=== PATIENT | female | born 1960 | race Caucasian/White ===

== ENCOUNTER 2017-09-22 00:03 | Emergency (ER) | payer OTHER ==
[2017-09-22 01:40] LABS: ADD MAN DIFF? NO
[2017-09-22 01:46] LABS: BASOPHIL # 0.1 10^3/ul (0.0-0.1); BASOPHILS % 0.7 % (0.0-2.0); EOSINOPHILS # 0.2 10^3/ul (0.0-0.5); EOSINOPHILS % 2.6 % (0.0-7.0); HEMATOCRIT 35.9 % (37.0-47.0); HEMOGLOBIN 10.8 g/dl (12.0-16.0); LYMPHOCYTES % 43.1 % (15.0-51.0); MEAN CORPUSCULAR HEMOGLOBIN 26.3 pg (29.0-33.0); MEAN CORPUSCULAR HGB CONC 30.1 g/dl (32.0-37.0); MEAN CORPUSCULAR VOLUME 87.3 fl (82.0-101.0); MEAN PLATELET VOLUME 9.5 fl (7.4-10.4); MONOCYTE # 0.6 10^3/ul (0.3-0.9); MONOCYTES % 8.2 % (0.0-11.0); NEUTROPHIL # 3.1 10^3/ul (1.6-7.5); NEUTROPHILS % 45.3 % (39.0-77.0); PLATELET COUNT 358 10^3/UL (140-415); RED BLOOD COUNT 4.11 10^6/ul (4.20-5.40); RED CELL DISTRIBUTION WIDTH 15.9 % (11.5-14.5)
[2017-09-22 01:46] LABS: WHITE BLOOD COUNT 6.9 10^3/ul (4.8-10.8)
[2017-09-22 02:02] LABS: ANION GAP 15 (8-16); BLOOD UREA NITROGEN 16 mg/dl (7-20); CALCIUM 9.5 mg/dl (8.4-10.2); CARBON DIOXIDE 32 mmol/L (21-31); CHLORIDE 103 mmol/L (97-110); CHOL/HDL RATIO 3.4 RATIO; CHOLESTEROL 161 mg/dl (100-200); CREATININE 1.01 mg/dl (0.44-1.00); GLUCOSE 81 mg/dl (70-220); HDL CHOLESTEROL 47 mg/dl (37-92); LDL CHOLESTEROL,CALCULATED 92 mg/dl; POTASSIUM 3.7 mmol/L (3.5-5.1); SODIUM 146 mmol/L (135-144); TRIGLYCERIDES 110 mg/dl (0-149)
[2017-09-22 02:13] LABS: TROPONIN-I < 0.010 ng/ml (0.000-0.120)
[2017-09-22] MEDS: ASPIRIN 81 MG TAB PO (02:37)
[2017-09-22] MEDS: ACETAMINOPHEN 500 MG TAB PO (02:37)
[2017-09-22 03:29] LABS: INR 1.08; PROTIME 14.1 Sec (11.9-14.9); PT RATIO 1.1
[2017-09-22 03:30] LABS: PARTIAL THROMBOPLASTIN TIME 35.8 Sec (25.0-35.0)
[2017-09-22 03:51] LABS: HEMOGLOBIN A1C 5.6 % (0-5.9)
== END 2017-09-22 07:39 | disposition short-term general hospital (02) ==
LOC: E/R 07:39
DX: R53.1 Weakness (principal); R60.0 Localized edema; R40.2142 Coma scale, eyes open, spontaneous, at arrival to emergency department; R40.2252 Coma scale, best verbal response, oriented, at arrival to emergency department; R40.2362 Coma scale, best motor response, obeys commands, at arrival to emergency department; M79.604 Pain in right leg; Z87.898 Personal history of other specified conditions
CPT/HCPCS: 36415; 70450; 71045; 80048; 80061; 83036; 84484; 85025; 85610; 85730; 93005; 99285-25

== ENCOUNTER 2018-08-17 04:59 | Emergency (ER) | payer OTHER ==
[2018-08-17 05:54] LABS: ADD MAN DIFF? NO
[2018-08-17 05:56] LABS: BASOPHIL # 0.1 10^3/ul (0.0-0.1); BASOPHILS % 0.4 % (0.0-2.0); EOSINOPHILS # 0.1 10^3/ul (0.0-0.5); EOSINOPHILS % 0.5 % (0.0-7.0); HEMOGLOBIN 8.2 g/dl (12.0-16.0); LYMPHOCYTES # 2.5 10^3/ul (0.8-2.9); LYMPHOCYTES % 15.1 % (15.0-51.0); MEAN CORPUSCULAR HEMOGLOBIN 25.9 pg (29.0-33.0); MEAN CORPUSCULAR HGB CONC 30.4 g/dl (32.0-37.0); MEAN CORPUSCULAR VOLUME 85.2 fl (82.0-101.0); MEAN PLATELET VOLUME 8.9 fl (7.4-10.4); MONOCYTE # 0.9 10^3/ul (0.3-0.9); MONOCYTES % 5.2 % (0.0-11.0); NEUTROPHIL # 12.9 10^3/ul (1.6-7.5); NEUTROPHILS % 78.1 % (39.0-77.0); PLATELET COUNT 430 10^3/UL (140-415); RED BLOOD COUNT 3.17 10^6/ul (4.20-5.40)
[2018-08-17 05:56] LABS: WHITE BLOOD COUNT 16.5 10^3/ul (4.8-10.8)
[2018-08-17] MEDS: PIPER-TAZO 3.375 GM IV (PMX) 100 ML IVPB (06:04)
[2018-08-17] MEDS: ACETAMINOPHEN 325 MG TAB PO (06:04)
[2018-08-17] MEDS: SODIUM CHLORIDE 0.9% 1L BAG IV* (06:04)
[2018-08-17 06:14] LABS: ALBUMIN/GLOBULIN RATIO 0.62; ALKALINE PHOSPHATASE 176 IU/L (42-121); ANION GAP 8 (5-13); ASPARTATE AMINO TRANSFERASE 15 IU/L (15-46); BILIRUBIN,INDIRECT 0.3 mg/dl (0-1.1); BILIRUBIN,TOTAL 0.3 mg/dl (0.2-1.3); BLOOD UREA NITROGEN 12 mg/dl (7-20); CALCIUM 8.6 mg/dl (8.4-10.2); CARBON DIOXIDE 27 mmol/L (21-31); CHLORIDE 105 mmol/L (97-110); CREATININE 0.77 mg/dl (0.44-1.00); Estimated GFR > 60 mL/min (>60); GLUCOSE 105 mg/dl (70-220); POTASSIUM 3.2 mmol/L (3.5-5.1); SODIUM 140 mmol/L (135-144); TOTAL PROTEIN 7.8 g/dl (6.1-8.1)
[2018-08-17 06:17] LABS: ALANINE AMINOTRANSFERASE < 6 IU/L (13-69)
[2018-08-17 06:18] LABS: INR 1.04; PROTIME 13.7 Sec (11.9-14.9); PT RATIO 1.1
[2018-08-17 06:19] LABS: PARTIAL THROMBOPLASTIN TIME 35.7 Sec (23.0-35.0)
[2018-08-17 06:25] LABS: TROPONIN-I < 0.012 ng/ml (0.000-0.120)
[2018-08-17] MEDS: VANCOMYCIN 1 GM (PMX) 250 ML IVPB (06:30)
[2018-08-17] MEDS: ONDANSETRON 4 MG INJ IV (06:30)
[2018-08-17] MEDS: morphine 4 MG/ML VIAL IV (06:31)
[2018-08-17 08:30] LABS: LACTIC ACID 0.7 mmol/L (0.5-2.0)
== END 2018-08-17 08:45 | disposition left against medical advice (07) ==
LOC: E/R 04:59
DX: A41.9 Sepsis, unspecified organism (principal); F17.210 Nicotine dependence, cigarettes, uncomplicated; E03.9 Hypothyroidism, unspecified; L03.115 Cellulitis of right lower limb; L03.116 Cellulitis of left lower limb; Z85.71 Personal history of Hodgkin lymphoma
CPT/HCPCS: 36415; 71045; 80053; 83605; 84484; 85025; 85610; 85730; 87040-91; 93005; 96374; 96375; 99285-25

== ENCOUNTER 2018-08-25 05:36 | Inpatient (IN) | payer OTHER ==
[2018-08-25] MEDS ORDERED: ACETAMINOPHEN 325 MG TAB PO (07:00)
[2018-08-25] MEDS ORDERED: ONDANSETRON 4 MG INJ IV ×2 (07:00→09:30)
[2018-08-25] MEDS: PIPER-TAZO 3.375 GM IV (PMX) 100 ML IVPB (07:47)
[2018-08-25 08:08] LABS: ADD MAN DIFF? NO
[2018-08-25 08:14] LABS: ADD UMIC YES; UR ASCORBIC ACID NEGATIVE (NEGATIVE); UR BACTERIA FEW /HPF (NONE SEEN); UR BILIRUBIN (Dip) NEGATIVE (NEGATIVE); UR BLOOD (Dip) NEGATIVE (NEGATIVE); UR CLARITY SLIGHTLY CLOUDY (CLEAR); UR COLOR YELLOW (YELLOW); UR GLUCOSE (Dip) NEGATIVE (NEGATIVE); UR KETONES (Dip) NEGATIVE (NEGATIVE); UR LEUKOCYTE ESTERASE (Dip) 2+ Leu/ul (NEGATIVE); UR MUCUS MODERATE /HPF (NONE SEEN); UR NITRITE (Dip) NEGATIVE (NEGATIVE); UR RBC 5 /HPF (0-5); UR SPECIFIC GRAVITY (Dip) 1.021 (1.003-1.030); UR SQUAMOUS EPITHELIAL CELL FEW /HPF (FEW); UR TOTAL PROTEIN (Dip) NEGATIVE (NEGATIVE); UR UROBILINOGEN (Dip) 2+ mg/dL (NEGATIVE); UR WBC 88 /HPF (0-5)
[2018-08-25 08:20] LABS: BASOPHILS % 0.6 % (0.0-2.0); EOSINOPHILS # 0.1 10^3/ul (0.0-0.5); EOSINOPHILS % 1.5 % (0.0-7.0); HEMATOCRIT 26.6 % (37.0-47.0); HEMOGLOBIN 7.9 g/dl (12.0-16.0); LYMPHOCYTES # 2.3 10^3/ul (0.8-2.9); LYMPHOCYTES % 31.6 % (15.0-51.0); MEAN CORPUSCULAR HGB CONC 29.7 g/dl (32.0-37.0); MEAN CORPUSCULAR VOLUME 87.5 fl (82.0-101.0); MEAN PLATELET VOLUME 9.1 fl (7.4-10.4); MONOCYTE # 0.6 10^3/ul (0.3-0.9); MONOCYTES % 7.7 % (0.0-11.0); NEUTROPHIL # 4.2 10^3/ul (1.6-7.5); NEUTROPHILS % 58.2 % (39.0-77.0); PLATELET COUNT 450 10^3/UL (140-415); RED BLOOD COUNT 3.04 10^6/ul (4.20-5.40); RED CELL DISTRIBUTION WIDTH 19.3 % (11.5-14.5)
[2018-08-25 08:20] LABS: WHITE BLOOD COUNT 7.2 10^3/ul (4.8-10.8)
[2018-08-25] MEDS: VANCOMYCIN 1 GM (PMX) 250 ML IVPB (08:20)
[2018-08-25 08:27] LABS: ALBUMIN 3.1 g/dl (3.3-4.9); ALBUMIN/GLOBULIN RATIO 0.65; ALKALINE PHOSPHATASE 143 IU/L (42-121); ANION GAP 5 (5-13); ASPARTATE AMINO TRANSFERASE 14 IU/L (15-46); BILIRUBIN,INDIRECT 0.3 mg/dl (0-1.1); BILIRUBIN,TOTAL 0.3 mg/dl (0.2-1.3); BLOOD UREA NITROGEN 12 mg/dl (7-20); CALCIUM 9.2 mg/dl (8.4-10.2); CARBON DIOXIDE 29 mmol/L (21-31); CHLORIDE 107 mmol/L (97-110); CREATININE 0.81 mg/dl (0.44-1.00); Estimated GFR > 60 mL/min (>60); GLUCOSE 98 mg/dl (70-220); POTASSIUM 3.7 mmol/L (3.5-5.1); SODIUM 141 mmol/L (135-144); TOTAL PROTEIN 7.8 g/dl (6.1-8.1)
[2018-08-25 08:33] LABS: INR 1.07; PT RATIO 1.1
[2018-08-25 08:34] LABS: ALANINE AMINOTRANSFERASE < 6 IU/L (13-69); PARTIAL THROMBOPLASTIN TIME 38.8 Sec (23.0-35.0)
[2018-08-25 08:38] LABS: TROPONIN-I < 0.012 ng/ml (0.000-0.120)
[2018-08-25 09:01] LABS: LACTIC ACID 0.8 mmol/L (0.5-2.0)
[2018-08-25] MEDS ORDERED: VANCOMYCIN IV PER PHARMACY XX (09:30)
[2018-08-25] MEDS: ACETAMINOPHEN 325 MG TAB PO (09:49)
[2018-08-25 11:29] LABS: LACTIC ACID 1.4 mmol/L (0.5-2.0)
[2018-08-25] MEDS: VANCOMYCIN 500 MG (PMX) 100 ML IVPB (12:31)
[2018-08-25] MEDS ORDERED: DICYCLOMINE 10 MG CAP PO (14:30)
[2018-08-25 14:41] LABS: IRON 28 ug/dl (35-150)
[2018-08-25 14:50] LABS: % IRON SATURATION 11 % SAT (22-52); TOTAL IRON BINDING CAPACITY 250 ug/dl (241-421)
[2018-08-25] MEDS: NICOTINE (21 MG/24 HR) PATCH TRANSDERM (14:57)
[2018-08-25] MEDS: FAMOTIDINE 20 MG INJ IV (14:57)
[2018-08-25] MEDS: SOD CHLORIDE 0.9% 1,000 ML IV (14:58)
[2018-08-25 15:20] LABS: RETICULOCYTE RBC 3.03
[2018-08-25 15:20] LABS: RETICULOCYTE COUNT # 0.099 X10^6 (0.020-0.110); RETICULOCYTE COUNT % 3.3 % (0.5-1.5)
[2018-08-25 15:48] LABS: FOLATE 12.3 ng/ml (2.8-20.0)
[2018-08-25] MEDS: COLLAGENASE 5 GM (UD JAR) TOP (16:00)
[2018-08-25] MEDS: DAKINS 0.0125%(1/40) 473 ML SOLUTION TP (16:00)
[2018-08-25] MEDS: KETOROLAC 30 MG INJ IV (21:09)
[2018-08-25] MEDS: CEFEPIME 1GM/50 ML (PMX) 50 ML IVPB (21:09)
[2018-08-25] MEDS: LORAZEPAM 2 MG INJ IV (21:16)
[2018-08-25] MEDS: VANCOMYCIN 1 GM 250 ML IVPB (23:20)
[2018-08-26] MEDS: LORAZEPAM 2 MG INJ IV (02:56)
[2018-08-26] MEDS ORDERED: LORAZEPAM 2 MG INJ IV (04:30)
[2018-08-26] MEDS: CEFEPIME 1GM/50 ML (PMX) 50 ML IVPB (09:35)
[2018-08-26] MEDS: FAMOTIDINE 20 MG INJ IV (09:35)
[2018-08-26] MEDS: morphine 2 MG INJ IV (09:35)
[2018-08-26] MEDS: NICOTINE (21 MG/24 HR) PATCH TRANSDERM (09:36)
[2018-08-26] MEDS: COLLAGENASE 5 GM (UD JAR) TOP ×2 (10:56)
[2018-08-26] MEDS: DAKINS 0.0125%(1/40) 473 ML SOLUTION TP (10:56)
[2018-08-26] MEDS: SOD CHLORIDE 0.9% 1,000 ML IV (10:56)
[2018-08-26] MEDS: VANCOMYCIN 1 GM 250 ML IVPB (11:19)
== END 2018-08-26 14:01 | disposition left against medical advice (07) | DRG 603 ==
LOC: E/R 05:36 → PP2 06:53
PROVIDERS: Internal Medicine Nephrology
DX: L03.116 Cellulitis of left lower limb (principal); N39.0 Urinary tract infection, site not specified; L03.115 Cellulitis of right lower limb; E03.9 Hypothyroidism, unspecified; F19.10 Other psychoactive substance abuse, uncomplicated; D64.9 Anemia, unspecified; Z85.72 Personal history of non-Hodgkin lymphomas; Z87.891 Personal history of nicotine dependence
CPT/HCPCS: 71045; 73721; 80053; 81001; 82607; 82746; 83540; 83605; 84484; 85025; 85045; 85610; 85730; 87040-91; 87070; 87081; 87086; 93005; 93970; 99285-25

== ENCOUNTER 2018-08-30 03:43 | Inpatient (IN) | payer OTHER ==
[2018-08-30 06:48] LABS: ADD MAN DIFF? NO
[2018-08-30 06:53] LABS: WHITE BLOOD COUNT 6.1 10^3/ul (4.8-10.8)
[2018-08-30 06:53] LABS: BASOPHILS % 0.7 % (0.0-2.0); EOSINOPHILS # 0.1 10^3/ul (0.0-0.5); HEMATOCRIT 26.9 % (37.0-47.0); HEMOGLOBIN 8.2 g/dl (12.0-16.0); LYMPHOCYTES # 2.4 10^3/ul (0.8-2.9); LYMPHOCYTES % 39.2 % (15.0-51.0); MEAN CORPUSCULAR HEMOGLOBIN 26.7 pg (29.0-33.0); MEAN CORPUSCULAR HGB CONC 30.5 g/dl (32.0-37.0); MEAN CORPUSCULAR VOLUME 87.6 fl (82.0-101.0); MEAN PLATELET VOLUME 8.9 fl (7.4-10.4); MONOCYTE # 0.5 10^3/ul (0.3-0.9); MONOCYTES % 8.4 % (0.0-11.0); NEUTROPHILS % 49.5 % (39.0-77.0); PLATELET COUNT 380 10^3/UL (140-415); RED BLOOD COUNT 3.07 10^6/ul (4.20-5.40); RED CELL DISTRIBUTION WIDTH 18.6 % (11.5-14.5)
[2018-08-30] MEDS: PIPER-TAZO 3.375 GM IV (PMX) 100 ML IVPB (06:58)
[2018-08-30] MEDS: SODIUM CHLORIDE 0.9% 1L BAG IV* (06:59)
[2018-08-30] MEDS ORDERED: ONDANSETRON 4 MG INJ IV (07:00)
[2018-08-30] MEDS ORDERED: ACETAMINOPHEN 325 MG TAB PO (07:00)
[2018-08-30 07:11] LABS: PROTIME 13.3 Sec (11.9-14.9)
[2018-08-30 07:12] LABS: ALANINE AMINOTRANSFERASE 10 IU/L (13-69); ALBUMIN 3.1 g/dl (3.3-4.9); ALBUMIN/GLOBULIN RATIO 0.73; ALKALINE PHOSPHATASE 121 IU/L (42-121); AMYLASE 56 U/L (11-123); ANION GAP 6 (5-13); ASPARTATE AMINO TRANSFERASE 16 IU/L (15-46); BILIRUBIN,INDIRECT 0.2 mg/dl (0-1.1); BILIRUBIN,TOTAL 0.2 mg/dl (0.2-1.3); BLOOD UREA NITROGEN 12 mg/dl (7-20); CARBON DIOXIDE 29 mmol/L (21-31); CHLORIDE 106 mmol/L (97-110); CREATININE 0.82 mg/dl (0.44-1.00); Estimated GFR > 60 mL/min (>60); GLUCOSE 86 mg/dl (70-220); LIPASE 33 U/L (23-300); PARTIAL THROMBOPLASTIN TIME 36.8 Sec (23.0-35.0); POTASSIUM 3.5 mmol/L (3.5-5.1); SODIUM 141 mmol/L (135-144); TOTAL PROTEIN 7.3 g/dl (6.1-8.1)
[2018-08-30 07:23] LABS: TROPONIN-I < 0.012 ng/ml (0.000-0.120)
[2018-08-30] MEDS: CLINDAMYCIN 900 MG/D5W (PMX) 50 ML IVPB (07:29)
[2018-08-30] MEDS: VANCOMYCIN 1 GM (PMX) 250 ML IVPB (08:35)
[2018-08-30 09:21] LABS: LACTIC ACID 0.8 mmol/L (0.5-2.0)
[2018-08-30] MEDS: PANTOPRAZOLE (EC) 40 MG TAB PO (10:03)
[2018-08-30] MEDS: ENOXAPARIN 40 MG/0.4 ML SYG SC (10:04)
[2018-08-30 12:15] LABS: LACTIC ACID 1.6 mmol/L (0.5-2.0)
[2018-08-30] MEDS: NICOTINE (21 MG/24 HR) PATCH TRANSDERM (15:56)
[2018-08-31] MEDS: PANTOPRAZOLE (EC) 40 MG TAB PO (05:58)
[2018-08-31 06:10] LABS: ADD MAN DIFF? NO; HAAIG REFLEX REFLEX FILED
[2018-08-31 06:20] LABS: BASOPHILS % 0.4 % (0.0-2.0); EOSINOPHILS # 0.1 10^3/ul (0.0-0.5); EOSINOPHILS % 2.3 % (0.0-7.0); HEMATOCRIT 25.7 % (37.0-47.0); HEMOGLOBIN 7.5 g/dl (12.0-16.0); LYMPHOCYTES % 38.5 % (15.0-51.0); MEAN CORPUSCULAR HEMOGLOBIN 25.8 pg (29.0-33.0); MEAN CORPUSCULAR HGB CONC 29.2 g/dl (32.0-37.0); MEAN CORPUSCULAR VOLUME 88.3 fl (82.0-101.0); MEAN PLATELET VOLUME 9.2 fl (7.4-10.4); MONOCYTE # 0.4 10^3/ul (0.3-0.9); MONOCYTES % 7.6 % (0.0-11.0); NEUTROPHIL # 2.7 10^3/ul (1.6-7.5); PLATELET COUNT 344 10^3/UL (140-415); RED BLOOD COUNT 2.91 10^6/ul (4.20-5.40); RED CELL DISTRIBUTION WIDTH 18.6 % (11.5-14.5)
[2018-08-31 06:20] LABS: WHITE BLOOD COUNT 5.3 10^3/ul (4.8-10.8)
[2018-08-31 06:57] LABS: B-TYPE NATRIURETIC PEPTIDE 209 PG/ML (0-125)
[2018-08-31 07:06] LABS: ANION GAP 6 (5-13); BLOOD UREA NITROGEN 11 mg/dl (7-20); CARBON DIOXIDE 27 mmol/L (21-31); CHLORIDE 109 mmol/L (97-110); CREATININE 0.62 mg/dl (0.44-1.00); Estimated GFR > 60 mL/min (>60); GLUCOSE 94 mg/dl (70-220); POTASSIUM 3.6 mmol/L (3.5-5.1); SODIUM 142 mmol/L (135-144)
[2018-08-31 07:18] LABS: HEPATITIS B SURFACE ANTIGEN NEGATIVE (NEGATIVE)
[2018-08-31 07:36] LABS: HEPATITIS B CORE ANTIBODY NEGATIVE (NEGATIVE); HIV 1&2 ANTIBODY NEGATIVE (NEGATIVE)
[2018-08-31 07:40] LABS: HEPATITIS C VIRAL ANTIBODY REACTIVE (NEGATIVE)
[2018-08-31] MEDS: NICOTINE (21 MG/24 HR) PATCH TRANSDERM (08:20)
[2018-08-31] MEDS: ENOXAPARIN 40 MG/0.4 ML SYG SC (08:21)
[2018-08-31] MEDS: MUPIROCIN 2% 22 GM OINT TOP ×2 (10:28→21:05)
[2018-08-31] MEDS ORDERED: VANCOMYCIN IV PER PHARMACY XX (11:00)
[2018-08-31] MEDS ORDERED: CEFEPIME 1GM/50 ML (PMX) 50 ML IVPB (11:00)
[2018-08-31] MEDS: LORAZEPAM 0.5 MG TAB PO ×2 (11:45→21:04)
[2018-08-31] MEDS: SENNA TAB PO (11:45)
[2018-08-31] MEDS: DAKINS 0.0125%(1/40) 473 ML SOLUTION TP ×2 (11:46→21:06)
[2018-08-31] MEDS ORDERED: VANCOMYCIN 1 GM 250 ML IVPB (13:00)
[2018-08-31] MEDS: BUPROPION (XL) 150 MG TAB PO (13:40)
[2018-08-31] MEDS: SOD FERRIC GLUC COMPLX 125 MG in SOD CHLORIDE 0.9% 100 ML IVPB (13:40)
[2018-08-31] MEDS: CLINDAMYCIN 900 MG/D5W (PMX) 50 ML IVPB ×2 (14:56→21:04)
[2018-08-31] MEDS: CIPROFLOXACIN 500 MG TAB PO (17:33)
[2018-08-31] MEDS ORDERED: DOXYCYCLINE 100 MG TAB PO (21:00)
[2018-08-31] MEDS: DOXYCYCLINE 100 MG TAB PO (22:05)
[2018-09-01] MEDS: CLINDAMYCIN 900 MG/D5W (PMX) 50 ML IVPB (05:19)
[2018-09-01] MEDS: LEVOTHYROXINE 100 MCG TAB PO (05:20)
[2018-09-01] MEDS: PANTOPRAZOLE (EC) 40 MG TAB PO (05:20)
[2018-09-01] MEDS: CIPROFLOXACIN 500 MG TAB PO (05:20)
[2018-09-01] MEDS ORDERED: LEVOTHYROXINE 75 MCG TAB PO (06:00)
[2018-09-01 06:05] LABS: ADD MAN DIFF? NO
[2018-09-01 06:23] LABS: BASOPHILS % 0.7 % (0.0-2.0); EOSINOPHILS # 0.1 10^3/ul (0.0-0.5); EOSINOPHILS % 1.4 % (0.0-7.0); HEMATOCRIT 28.6 % (37.0-47.0); HEMOGLOBIN 8.5 g/dl (12.0-16.0); LYMPHOCYTES # 1.6 10^3/ul (0.8-2.9); LYMPHOCYTES % 35.4 % (15.0-51.0); MEAN CORPUSCULAR HEMOGLOBIN 26.4 pg (29.0-33.0); MEAN CORPUSCULAR HGB CONC 29.7 g/dl (32.0-37.0); MEAN CORPUSCULAR VOLUME 88.8 fl (82.0-101.0); MONOCYTE # 0.3 10^3/ul (0.3-0.9); MONOCYTES % 7.4 % (0.0-11.0); NEUTROPHIL # 2.4 10^3/ul (1.6-7.5); NEUTROPHILS % 54.6 % (39.0-77.0); PLATELET COUNT 323 10^3/UL (140-415); RED BLOOD COUNT 3.22 10^6/ul (4.20-5.40); RED CELL DISTRIBUTION WIDTH 18.1 % (11.5-14.5)
[2018-09-01 06:23] LABS: WHITE BLOOD COUNT 4.4 10^3/ul (4.8-10.8)
[2018-09-01 06:40] LABS: IRON 42 ug/dl (35-150)
[2018-09-01 06:42] LABS: ANION GAP 8 (5-13); BLOOD UREA NITROGEN 9 mg/dl (7-20); CALCIUM 8.3 mg/dl (8.4-10.2); CARBON DIOXIDE 26 mmol/L (21-31); CHLORIDE 106 mmol/L (97-110); CREATININE 0.64 mg/dl (0.44-1.00); Estimated GFR > 60 mL/min (>60); GLUCOSE 86 mg/dl (70-220); POTASSIUM 4.1 mmol/L (3.5-5.1); SODIUM 140 mmol/L (135-144)
[2018-09-01 06:49] LABS: % IRON SATURATION 15 % SAT (22-52); TOTAL IRON BINDING CAPACITY 281 ug/dl (241-421)
[2018-09-01] MEDS: BUPROPION (XL) 150 MG TAB PO (08:56)
[2018-09-01] MEDS: LORAZEPAM 0.5 MG TAB PO (08:56)
[2018-09-01] MEDS: NICOTINE (21 MG/24 HR) PATCH TRANSDERM (08:56)
[2018-09-01] MEDS: ENOXAPARIN 40 MG/0.4 ML SYG SC (08:59)
[2018-09-01] MEDS: MUPIROCIN 2% 22 GM OINT TOP (09:00)
[2018-09-01] MEDS: DAKINS 0.0125%(1/40) 473 ML SOLUTION TP (09:00)
[2018-09-01] MEDS: DOXYCYCLINE 100 MG TAB PO (09:00)
== END 2018-09-01 11:50 | disposition left against medical advice (07) | DRG 603 ==
LOC: E/R 03:43 → 5EC 06:34
PROVIDERS: Internal Medicine Nephrology
DX: L03.115 Cellulitis of right lower limb (principal); L97.219 Non-pressure chronic ulcer of right calf with unspecified severity; F11.20 Opioid dependence, uncomplicated; E46 Unspecified protein-calorie malnutrition; L02.415 Cutaneous abscess of right lower limb; Z85.72 Personal history of non-Hodgkin lymphomas; Z72.0 Tobacco use; L97.519 Non-pressure chronic ulcer of other part of right foot with unspecified severity; Z91.19 Patient's noncompliance with other medical treatment and regimen; B96.20 Unspecified Escherichia coli [E. coli] as the cause of diseases classified elsewhere; B95.61 Methicillin susceptible Staphylococcus aureus infection as the cause of diseases classified elsewhere; Z68.26 Body mass index [BMI] 26.0-26.9, adult; E03.9 Hypothyroidism, unspecified; F41.8 Other specified anxiety disorders
CPT/HCPCS: 36415; 80048; 80053; 82150; 83540; 83605; 83690; 83880; 84443; 84484; 85025; 85610; 85730; 86703; 86704; 86709; 86803; 87040-91; 87070; 87081; 87340; 93005; 93306; 93970; 99285-25